=== PATIENT | female | born 1990 | race American Indian/Alaskan Native ===

== ENCOUNTER 2019-02-19 07:33 | Outpatient (CLI) | payer MEDICAID ==
--- NOTE | 2019-02-19 11:40 | Mammography Report ---
BILATERAL DIGITAL DIAGNOSTIC MAMMOGRAM WITH CAD RIGHT LIMITED BREAST ULTRASOUND INDICATION: 28-year-old with a palpable lump in the right breast. TECHNIQUE: Digital bilateral mammographic imaging was performed. Limited ultrasound was performed. T his examination was interpreted with the benefit of Computer-Aided Detection (CAD) analysis. COMPARISON: None. FINDINGS: Breast Density: The breasts are extremely dense which limits the sensitivity of mammography. There is no evidence of dominant mass, suspicious calcifications or architectural distortion in eithe r breast. No mammographic finding at a right periareolar palpable marker at 3:00. Ultrasound Findings: Targeted ultrasound evaluation was performed of the area of interest. An oval heterogeneous predominantly anechoic cyst contiguous to the skin at 1:00 at the edge of the area low measures 5 x 3 x 8 mm and correlates with the palpable lump. IMPRESSION: A benign cyst which is probably a benign sebaceous cyst. No suspicious finding. Recommend clinical follow-up. BI-RADS Category 2: Benign. Unless otherwise clinically indicated, recommend patient return to [facility] screening mammography at age 40. A "normal" or negative report should not discourage follow up or biopsy of a clinically significant f inding. A written summary of these findings will be mailed to the patient. The patient will be entered into a mammography reporting system which will generate a reminder letter for the patient's next appointmen t at the appropriate interval. FURTHER INFORMATION: According to the [employer], yearly mammograms are recommend ed starting at age 40 and continuing as long as a woman is in good health. Breast MRI is recommended for women with an approximately 20-25% or greater lifetime risk of breast cancer, including women wi th a strong family history of breast or ovarian cancer and women who have been treated for Hodgkin's disease. Signer Name: Nick Carolina MD Signed: 02/19/2019 11:36 AM Workstation Name: [id number]
== END 2019-02-19 07:34 | disposition home or self-care (01) ==
LOC: MAMMO 07:33
PROVIDERS: ATTEND Internal Medicine
DX: N60.01 Solitary cyst of right breast (principal)
CPT/HCPCS: 77066